=== PATIENT | female | born 1990 | race Two or more races ===

== ENCOUNTER → 2021-07-31 | Emergency (ER) | payer SELFPAY ==
[~2021-07-31] VITALS: Ht 160 cm; Wt 77.1 kg
[~2021-07-31] MED LIST: PIPERACILLIN-TAZOB 3.375GM 100 ML IV ONE; VANCOMYCIN 1GM/250ML 250 ML IV ONE; VANCOMYCIN PER PHARMACY 0 MG IV SCH
[2021-07-31 20:50] VITALS: BP 112/76
== END | disposition left against medical advice (07) ==
LOC: ER 20:59
DX: L02.413 Cutaneous abscess of right upper limb (principal); Z53.29 Procedure and treatment not carried out because of patient's decision for other reasons

== ENCOUNTER 2022-02-14 10:21 | Emergency (ER) | payer MEDICAID, OTHER ==
[~2022-02-14] VITALS: Ht 157.5 cm; Wt 69.3 kg
[2022-02-14 11:16] VITALS: BP 114/73
[2022-02-14] MEDS ORDERED: cefTRIAXone SOD 1,000 MG VL IM ONE (11:45)
[2022-02-14] MEDS ORDERED: CLIN-188 PO (11:46)
== END 2022-02-14 11:59 | disposition home or self-care (01) ==
LOC: ER 10:21
DX: L02.414 Cutaneous abscess of left upper limb (principal); F15.10 Other stimulant abuse, uncomplicated; F11.10 Opioid abuse, uncomplicated
CPT/HCPCS: 96372; 99283; J0696

== ENCOUNTER 2022-04-19 16:49 | Emergency (ER) | payer OTHER ==
[~2022-04-19 16:49] MED LIST changes: +CLIN-188 PO; -PIPERACILLIN-TAZOB 3.375GM 100 ML IV ONE; -VANCOMYCIN 1GM/250ML 250 ML IV ONE; -VANCOMYCIN PER PHARMACY 0 MG IV SCH
[2022-04-20] MEDS ORDERED: CLIN300C8 PO (08:31)
[2022-04-20] MEDS ORDERED: CEPH-510 PO (08:31)
== END 2022-04-19 18:29 | disposition left against medical advice (07) ==
LOC: ER 16:49
DX: L02.91 Cutaneous abscess, unspecified (principal); Z53.21 Procedure and treatment not carried out due to patient leaving prior to being seen by health care provider

== ENCOUNTER 2022-04-20 02:23 | Emergency (ER) | payer OTHER ==
[~2022-04-20] VITALS: Ht 160 cm; Wt 65.9 kg
[2022-04-20 02:37] VITALS: BP 119/86
[2022-04-20] MEDS ORDERED: CLINDAMYCIN 600 MG/4 ML VL IM ONE (06:45)
[2022-04-20] MEDS ORDERED: cefTRIAXone SOD 1,000 MG VL IM ONE (06:45)
[2022-04-20] MEDS ORDERED: CLINDAMYCIN HCL 150 MG CAP PO ONE (07:15)
[2022-04-20] MEDS ORDERED: CLIN300C8 PO (08:31)
[2022-04-20] MEDS ORDERED: CEPH-510 PO (08:31)
== END 2022-04-20 08:40 | disposition left against medical advice (07) ==
LOC: ER 02:23
DX: L03.113 Cellulitis of right upper limb (principal); Z79.2 Long term (current) use of antibiotics
CPT/HCPCS: 96372; 99283; J0696